=== PATIENT | male | born 1930 | race Caucasian/White ===

== ENCOUNTER 2016-09-18 18:32 | Inpatient (IN) | payer MEDICARE, BC ==
--- NOTE | ~2016-09-18 | DS ---
Discharge Summary [facility] [address] [place]. [address] NAME: LUX FONG : [birth year] STATUS : ADM IN PAT#: [id number] AGE: 86 ADM/REG DATE : 09/18/16 MR#: [id number] REPORT SERV DATE: 09/23/16 DICTATED BY: MICHAEL GEORGE DATE: 09/23/16 REPORT STATUS : Draft TRANSCRIBED BY: MODL DATE: 09/23/16 ADMISSION DATE: 09/18/2016 DISCHARGE DATE: FINAL DIAGNOSES: 1. Bilateral lower extremity cellulitis, improving. 2. Flu, improved. 3. Acute hypoxic respiratory failure, improved. 4. History of asbestosis. 5. Chronic obstructive pulmonary disease exacerbation, improved. 6. Hypertension. 7. Diabetes. 8. Status post acute kidney injury. 9. Peptic ulcer disease. 10.Benign prostatic hyperplasia. 11.Essential tremors. DIAGNOSTIC EXAM: Chest x-ray showing no acute cardiopulmonary disease. Stable nonspecific hyperinflation of the lungs. Chronic bilateral calcified pleural plaques. HOSPITAL COURSE: Please refer to the H and P done by Dr. Allred dated on September 18, 2016. Briefly, this is an 86-year-old male with a history of COPD, PASQUALE, CKD 3, chronic lymph edema, comes in with fever, increased lower extremity swelling and cough. The patient was found to have a flu, started on Tamiflu with a COPD exacerbation. He was also started on antibiotics for his cellulitis. There is some improvement on his cellulitis with decreased swelling, redness, and erythema. The patient completed treatment for flu and his acute respiratory failure improved as well. However, the daughter said that he has PASQUALE, used to be on CPAP before, but for some reason, does not have the machine anymore. She is requesting for a sleep study. However, we do not do that in the hospital. I advised her that once he gets much better, that he would need an outpatient sleep study, but for now, he would be needing 2 L of oxygen at night, but he can take it off during the day. The patient also was found to have an MARI with a creatinine of 1.99. We held off his lisinopril and increased the hydralazine to maintain a good blood pressure. The patient's MARI improved and went down to 1.26. We had to continue the furosemide because of his chronic lymph edema and I think he can continue this with the improvement of his creatinine. The patient will now be discharged to [facility] with the above diagnosis. He will be on the following medications: Aspirin 81 mg a day, Colace 100 mg twice a day, Lasix 20 mg a day, sliding scale NovoLog, melatonin 10 mg at bedtime, multivitamin once a day, Mirapex 0.25 mg at bedtime, Nexium 40 mg a day, Flomax 0.4 mg a day, hydralazine 50 mg every eight hours, metformin 500 mg twice a day, Proventil inhaled four times a day, Brintellix 10 mg at bedtime, Anoro Ellipta 62.5/25 inhaled a day, and Duricef 1 g p.o. b.i.d. for one more week. The patient will follow up with the [facility] doctor, then follow up with his PCP after [facility] discharge. This has been explained to the patient. He agreed and understood the plan. Discharge Summary [address] [address] NAME: LUX FONG : [birth year] STATUS : ADM IN PAT#: [id number] AGE: 86 ADM/REG DATE : 09/18/16 MR#: [id number] REPORT SERV DATE: 09/23/16 DICTATED BY: MICHAEL GEORGE DATE: 09/23/16 REPORT STATUS : Draft TRANSCRIBED BY: TANNER DATE: 09/23/16 FERNANDA/TANNER Michael George M.D. / [id number] CC: Kishan Capellan MD
--- NOTE | ~2016-09-18 | HP ---
History And Physical [id number] [place]. [address] NAME: LUX FONG : [birth year] STATUS : ADM IN PAT#: [id number] AGE: 86 ADM/REG DATE : 09/18/16 MR#: [id number] REPORT SERV DATE: 09/19/16 DICTATED BY: FAUSTO CORONA DATE: 09/18/16 REPORT STATUS : Draft TRANSCRIBED BY: MODL DATE: 09/18/16 DATE OF ADMISSION: 09/18/2016 POINT OF ENTRY: [facility] Emergency Room Department. PRIMARY CARE PHYSICIAN: Sebas Sandra N.P. CHIEF COMPLAINT: Fevers, cough, lower extremity swelling and redness. HISTORY OF PRESENT ILLNESS: Mr. Fong is an 86-year-old gentleman with history of COPD, not on any oxygen; asbestosis; eeo-oazwfwq-vcdurqjqp diabetes type 2; chronic kidney stage 3; as well as chronic lower extremity lymphedema, who presents to the emergency room today with multiple complaints including fevers, lower extremity swelling, redness, and pain, cough as well as nausea and vomiting. The patient was doing well and his usual state of health until about when he started to develop fevers as well as nausea and vomiting. The family states that the fever has been as high as 102 degrees Fahrenheit and included a fever this morning. Given that he was having nausea and vomiting, he underwent a swallow study given his recent history of stroke which reportedly did not show any dysphagia. He denies any abdominal pain and diarrhea but does report some chronic constipation. The patient also reports a dry, nonproductive cough during this time period, but denies any shortness of breath or associated wheezing. Beginning this morning, his legs became more swollen than usual, warm to the touch, tender as well as very red. The patient actually was placed on some Levaquin by his primary care physician yesterday for the cough. Initial evaluation in the emergency room for flu A positivity. Labs otherwise unremarkable except for creatinine of 1.9 which is above his baseline. Chest x-ray shows diffuse interstitial alveolar and pleural opacities consistent with the patient's asbestosis exposure; however, it appears more severe than prior chest x-rays. The patient was subsequently admitted to the Hospitalist Service for further evaluation and management. The patient also reports some sacral wounds and some chronic lower back pain, but otherwise, denies any chest pain, palpitations, shortness of breath, wheezing, sputum production, abdominal pain, diarrhea, melena, hematochezia, or hemoptysis. Comprehensive system otherwise negative unless listed in history of present illness. PREVIOUS MEDICAL HISTORY: 1. COPD, not on home oxygen. 2. Asbestosis. 3. Chronic kidney stage 3, baseline creatinine 1.2 to 1.4. 4. Hypertension. 5. Hyperlipidemia. 6. Dui-enxswkx-yvsojrovr diabetes mellitus type 2. History And Physical [address] [address] NAME: LUX FONG : [birth year] STATUS : ADM IN PAT#: [id number] AGE: 86 ADM/REG DATE : 09/18/16 MR#: [id number] REPORT SERV DATE: 09/19/16 DICTATED BY: FAUSTO CORONA DATE: 09/18/16 REPORT STATUS : Draft TRANSCRIBED BY: TANNER DATE: 09/18/16 7. Prior history of lower extremity cellulitis. 8. Chronic lymphedema. 9. Prior history of cerebrovascular accident with right-sided weakness. 10.Peptic ulcer disease. SURGICAL HISTORY: Hernia repair surgery. ALLERGIES: PENICILLIN AND AUGMENTIN. HOME MEDICATIONS: 1. Albuterol one inhalation q.i.d. p.r.n. 2. Aspirin 81 mg daily. 3. M-End PE liquid 5 mL q.4 hours p.r.n. 4. Nexium 40 mg at bedtime. 5. Lasix 20 mg daily. 6. [place] 10-325 one tablet at bedtime. 7. Ibuprofen 600 mg at bedtime. 8. Levaquin 500 mg daily. 9. Lisinopril 10 mg daily. 10.Melatonin 10 mg at bedtime. 11.Metformin 500 mg b.i.d. 12.Mirapex 0.25 mg at bedtime. 13.Flomax 0.4 mg at bedtime. 14.Anoro Ellipta one inhalation daily. 15.Medihoney. 16.Brintellix 10 mg at bedtime. SOCIAL HISTORY: Denies any tobacco, alcohol, or illicit. Is a former smoker but quit greater than 40 years ago. 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 FAMILY MEDICAL HISTORY: Mother with cancer type unknown. Father and siblings with history of coronary artery disease. LABS AND IMAGIN. White count 6.3, hemoglobin 12.8, hematocrit 39.9, platelets 213, and INR 1.1. 2. Sodium is 138, potassium 4.3, chloride 106, carbon dioxide 26, BUN 29, creatinine 1.99, glucose is 94, calcium is 8.7, protein is 7.7, albumin is 3.1, bilirubin is 0.3, ALT is 20, AST 19, alkaline phosphatase is 85. 3. Lipase is 56. 4. Lactic acid 1.4. 5. Flu A is positive. 6. EKG per my review shows normal sinus rhythm with no evidence of acute ischemia or infarction. 7. Chest x-ray per my review shows diffuse interstitial alveolar as well as pleural opacities concerning for asbestosis exposure; however, when compared to prior x-rays, the alveolar and interstitial opacities appear more prominent concerning for possible History And Physical [address] [address] NAME: LUX FONG : [birth year] STATUS : ADM IN [facility]#: [id number] AGE: 86 ADM/REG DATE : 09/18/16 MR#: [id number] REPORT SERV DATE: 09/19/16 DICTATED BY: FAUSTO CORONA DATE: 09/18/16 REPORT STATUS : Draft TRANSCRIBED BY: TANNER DATE: 09/18/16 pneumonia versus edema. PHYSICAL EXAMINATION: VITAL SIGNS: Temperature is 98.5 degrees Fahrenheit, pulse is 78, respirations 18, saturating 86% on room air, blood pressure 127/63. On recheck, it is now 155/54, saturating 97% on 3 L of cannula. GENERAL: The patient is awake, alert, in no acute distress. Resting comfortably. He is a well-developed, well-nourished, elderly male. Daughter is at bedside. HEENT: Atraumatic and normocephalic. Moist mucous membranes. Pupils equal, round, reactive to light and accommodation. Extraocular eye movements are intact. No scleral icterus. NECK: No jugular venous distention. No carotid bruits. CARDIAC: Regular rate and rhythm. No murmurs, rubs, or gallops. Normal S1, S2. LUNGS: Is on oxygen but in no respiratory distress. The patient has diffuse inspiratory crackles as well as rales and occasional rhonchi in almost all lung [place]. ABDOMEN: Soft, nontender, and nondistended. Good bowel sounds. No rebound, guarding, or rigidity. EXTREMITIES: Bilateral lower extremities have approximately 2+ lower extremity edema. The left greater than right extremity is very red to the level of the region below the knee. Warm to the touch as well as tender. There are no areas of ulceration and no palpable fluid collections at this time. SKIN: Warm and dry except for noted above. PSYCH: Affect appropriate. NEURO: Alert and oriented x3. Cranial nerves II through XII grossly intact. Speech is normal. Gait not assessed. ASSESSMENT AND PLAN: Mr. Fong is an 86-year-old gentleman who presents with cough, fevers, and lower extremity pain and swelling and found to have evidence of influenza infection as well as lower extremity cellulitis, hypoxemia, and possible pneumonia. PROBLEM LIST: 1. Lower extremity cellulitis. 2. Flu A positive infection. 3. Hypoxemia. 4. Acute kidney injury. 5. Possible pneumonia. 6. Kbc-punbalc-kzplxjqzy diabetes mellitus type 2. PLAN: 1. Lower extremity cellulitis. We will place the patient empirically on vancomycin. Consult Wound Care for assistance. Have the patient elevate his legs. 2. Flu A positivity. We will treat empirically with Tamiflu. 3. Hypoxemia, likely secondary to flu A positivity as well as possible pneumonia in the setting of COPD and prior asbestos exposure. We will attempt to wean as tolerated with treatment with nebs, pulmonary toilet as well as antibiotics. 4. Acute kidney injury. The patient appears to have acute on chronic kidney stage 3. His baseline creatinine approximately is 1.2 to 1.4. This is mildly elevated above his baseline. As such, we will hold his MIKKI inhibitor as well as his NSAIDs. Provide History And Physical [address] [address] NAME: LUX FONG : [birth year] STATUS : ADM IN [facility]#: [id number] AGE: 86 ADM/REG DATE : 09/18/16 MR#: [id number] REPORT SERV DATE: 09/19/16 DICTATED BY: FAUSTO CORONA DATE: 09/18/16 REPORT STATUS : Draft TRANSCRIBED BY: MODL DATE: 09/18/16 gentle IV fluid hydration. 5. Possible pneumonia. We will empirically place the patient on Levaquin for community- acquired pneumonia given penicillin allergy. We will follow up formal radiology read of the chest x-ray. Given concern for possible edema, we will also check a BNP level. 6. COPD. I do not appreciate any wheezing at this time. The patient denies any shortness of breath or sputum production. I will place the patient on DuoNeb as well as frequent bronchodilators but hold off on steroids at this time. 7. DVT prophylaxis. Lovenox subcu. 8. Code status. The patient wishes to be full code. MICHEALB/MODL Fausto Corona MD / [id number] CC: Kishan Mcbride N.P.
[2016-09-18 16:58] LABS: BASOPHILS 0.3 %; BASOPHILS ABSOLUTE 0.02 10/3/uL (0.0-0.16); EOSINOPHILS 0 %; ER CBC TAT 0 Hrs 08 Mins; HEMATOCRIT 39.9 % (40.0-51.0); HEMOGLOBIN 12.8 g/dL (13.6-17.8); IMMATURE GRANULOCYTES 0.3 %; IMMATURE GRANULOCYTES ABSOLUTE 0.02 10/3/uL (0.0-0.11); LYMPHOCYTES 16.9 %; LYMPHOCYTES ABSOLUTE 1.07 10/3/uL (0.67-4.30); MEAN CORPUS HGB CONC 32.1 g/dL (32.0-36.0); MEAN CORPUSCULAR VOLUME 90.3 fL (80-100); MEAN PLATELET VOLUME 11.1 fL (9.2-13.0); MONOCYTES 9.2 %; MONOCYTES ABSOLUTE 0.58 10/3/uL (0.21-1.20); NEUTROPHILS 73.3 %; NEUTROPHILS ABSOLUTE 4.63 10/3/uL (2.02-8.40); PLATELET COUNT 213 10/3/uL (150-400); RBC DISTRIBUTION WIDTH 14.6 % (12.0-16.0); RED CELL COUNT 4.42 10/6/uL (4.7-6.1); WHITE BLOOD CELLS 6.3 10/3/uL (4.5-10.5)
[2016-09-18 17:08] LABS: MANUAL DIFF NO %
[2016-09-18 17:17] LABS: INTERNATIONAL NORMAL RATI 1.1 UNITS (-); PROTIME (NOT ORD) 14.3 SEC (12.0-14.5)
[2016-09-18 17:18] LABS: A/G RATIO 0.7 (0.7-1.9); ALBUMIN 3.1 G/DL (3.5-5.0); BUN (BLOOD UREA NITROGEN) 29 MG/DL (6-23); CALCIUM, SERUM 8.7 MG/DL (8.5-10.4); CHLORIDE, SERUM 100 MMOL/L (96-112); CO2 (CARBON DIOXIDE) 26 MMOL/L (24-34); GLOBULIN 4.6 G/DL (2.5-4.1); POTASSIUM, SERUM 4.3 MMOL/L (3.5-5.3); SGOT(AST) 19 U/L (5-40); SGPT(ALT) 20 U/L (5-65); SODIUM, SERUM 138 MMOL/L (135-148); TOTAL BILIRUBIN 0.3 MG/DL (0-1.2); TOTAL PROTEIN 7.7 G/DL (6.0-8.5)
[2016-09-18 17:20] LABS: ALKALINE PHOSPHATASE 85 U/L (45-117); CREATININE 1.99 MG/DL (0.70-1.30); GFR AFRICAN AMERICAN 34 ML/MIN (>=60); GFR NON AFRICAN AMERICAN 29 ML/MIN (>=60); GLUCOSE, SERUM 94 MG/DL (60-99); PARTIAL THROMBO TIME 37.6 SEC (22.5-37.2)
[2016-09-18 17:21] LABS: LACTATE 1.4 MMOL/L (0.3-2.4)
[2016-09-18 18:05] LABS: PROCALCITONIN 0.07 ng/mL (<0.5)
[~2016-09-18 18:32] MED LIST: ADVAIR100 INH; AMARYL2 PO; AVAP150 PO; BYETTA10 SC; CARD120 PO; FLONASE NAS; GLUCPH PO; ISORDIL20 PO; LACHYDRIN LOT225 GM EX; MIRAPEX125 PO; PRILO PO; SPIRIVA INH; STARLIX120 PO; TRIAMCINOLONE C80 GM T; XYZAL5 MG PO; ZOCOR20 PO
[2016-09-18 19:54] LABS: INFLUENZA B SCREEN NEGATIVE (NEGATIVE)
[2016-09-18 19:55] LABS: INFLUENZA A SCREEN POSITIVE (NEGATIVE)
[2016-09-18] MEDS ORDERED: ASAB PO (20:17)
[2016-09-18] MEDS ORDERED: ZESTRIL10 MG PO (20:18)
[2016-09-18] MEDS ORDERED: L20 PO (20:18)
[2016-09-18] MEDS ORDERED: GLUCPH PO (20:18)
[2016-09-18] MEDS ORDERED: NEXIUM40 PO (20:19)
[2016-09-18] MEDS ORDERED: BRINT10T PO (20:19)
[2016-09-18] MEDS ORDERED: NORCO1 TAB PO (20:19)
[2016-09-18] MEDS ORDERED: IBU600 PO (20:20)
[2016-09-18] MEDS ORDERED: MIRAPEX250 PO (20:20)
[2016-09-18] MEDS ORDERED: MELATONIN10 M2 PO (20:20)
[2016-09-18] MEDS ORDERED: FLOMAX4 PO (20:20)
[2016-09-18] MEDS ORDERED: LEVAQUIN5T PO (20:21)
[2016-09-18] MEDS ORDERED: M-END PE PO (20:22)
[2016-09-18] MEDS ORDERED: ALBUTEROL5 INH (20:25)
[2016-09-18] MEDS ORDERED: ANOROELLIPTA INH (20:26)
[2016-09-18] MEDS ORDERED: MEDIHONEY TOP (20:27)
[2016-09-18 21:36] LABS: ASCORBIC ACID (UR NOT ORDER) NEG (NEG); BILIRUBIN, URINE NEGATIVE (NEG); ER URINALYSIS TAT 0 Hrs 10 Mins; KETONE, URINE NEGATIVE (NEG); LEUKOCYTE ESTERASE(NOT OR NEG (NEG); NITRITE (URINE) NEG (NEG); WBC (NOT ORDERED) (RFLEX) 1 (0-5)
[2016-09-19 04:27] LABS: BASOPHILS 0.2 %; BASOPHILS ABSOLUTE 0.01 10/3/uL (0.0-0.16); EOSINOPHILS 0.4 %; EOSINOPHILS ABSOLUTE 0.02 10/3/uL (0.0-0.53); HEMOGLOBIN 11.4 g/dL (13.6-17.8); IMMATURE GRANULOCYTES 0.4 %; IMMATURE GRANULOCYTES ABSOLUTE 0.02 10/3/uL (0.0-0.11); LYMPHOCYTES 17.2 %; LYMPHOCYTES ABSOLUTE 0.84 10/3/uL (0.67-4.30); MEAN CORPUS HGB CONC 32.5 g/dL (32.0-36.0); MEAN CORPUSCULAR VOLUME 89.3 fL (80-100); MEAN PLATELET VOLUME 11.1 fL (9.2-13.0); MONOCYTES 12.5 %; MONOCYTES ABSOLUTE 0.61 10/3/uL (0.21-1.20); NEUTROPHILS 69.3 %; NEUTROPHILS ABSOLUTE 3.37 10/3/uL (2.02-8.40); PLATELET COUNT 179 10/3/uL (150-400); RBC DISTRIBUTION WIDTH 14.4 % (12.0-16.0); RED CELL COUNT 3.93 10/6/uL (4.7-6.1); WHITE BLOOD CELLS 4.9 10/3/uL (4.5-10.5)
[2016-09-19 04:28] LABS: HEMATOCRIT 35.1 % (40.0-51.0); MANUAL DIFF NO %
[2016-09-19 04:42] LABS: ALBUMIN 2.5 G/DL (3.5-5.0); CALCIUM, SERUM 8.1 MG/DL (8.5-10.4); CHLORIDE, SERUM 103 MMOL/L (96-112); CO2 (CARBON DIOXIDE) 26 MMOL/L (24-34); GFR AFRICAN AMERICAN 48 ML/MIN (>=60); GFR NON AFRICAN AMERICAN 41 ML/MIN (>=60); GLUCOSE, SERUM 97 MG/DL (60-99); PHOSPHORUS, SERUM 3.1 MG/DL (2.5-4.5); POTASSIUM, SERUM 3.8 MMOL/L (3.5-5.3); SODIUM, SERUM 139 MMOL/L (135-148)
[2016-09-19 04:50] LABS: BUN (BLOOD UREA NITROGEN) 25 MG/DL (6-23); CREATININE 1.49 MG/DL (0.70-1.30)
[2016-09-19 17:56] LABS: FREE T4 1.22 NG/DL (0.76-1.46)
[2016-09-19 17:58] LABS: FOLATE 19.7 NG/ML (>5.2)
[2016-09-20 08:11] LABS: BASOPHILS 0.4 %; BASOPHILS ABSOLUTE 0.01 10/3/uL (0.0-0.16); EOSINOPHILS 0 %; HEMATOCRIT 38.2 % (40.0-51.0); HEMOGLOBIN 12.5 g/dL (13.6-17.8); IMMATURE GRANULOCYTES 0.8 %; IMMATURE GRANULOCYTES ABSOLUTE 0.02 10/3/uL (0.0-0.11); LYMPHOCYTES 17.4 %; LYMPHOCYTES ABSOLUTE 0.41 10/3/uL (0.67-4.30); MEAN CORPUS HGB CONC 32.7 g/dL (32.0-36.0); MEAN CORPUSCULAR HEMOGLOB 28.7 pg (26.0-34.0); MEAN CORPUSCULAR VOLUME 87.8 fL (80-100); MEAN PLATELET VOLUME 11.4 fL (9.2-13.0); MONOCYTES 5.9 %; MONOCYTES ABSOLUTE 0.14 10/3/uL (0.21-1.20); NEUTROPHILS 75.5 %; NEUTROPHILS ABSOLUTE 1.78 10/3/uL (2.02-8.40); PLATELET COUNT 191 10/3/uL (150-400); RBC DISTRIBUTION WIDTH 14.2 % (12.0-16.0); RED CELL COUNT 4.35 10/6/uL (4.7-6.1)
[2016-09-20 08:15] LABS: WHITE BLOOD CELLS 2.4 10/3/uL (4.5-10.5)
[2016-09-20 08:16] LABS: BUN (BLOOD UREA NITROGEN) 23 MG/DL (6-23); CALCIUM, SERUM 8.7 MG/DL (8.5-10.4); CHLORIDE, SERUM 102 MMOL/L (96-112); CO2 (CARBON DIOXIDE) 27 MMOL/L (24-34); CREATININE 1.22 MG/DL (0.70-1.30); GFR AFRICAN AMERICAN 61 ML/MIN (>=60); GFR NON AFRICAN AMERICAN 53 ML/MIN (>=60); POTASSIUM, SERUM 4.1 MMOL/L (3.5-5.3); SODIUM, SERUM 138 MMOL/L (135-148)
[2016-09-20 08:17] LABS: GLUCOSE, SERUM 160 MG/DL (60-99)
[2016-09-20 08:18] LABS: MANUAL DIFF NO %
[2016-09-21 05:26] LABS: BASOPHILS 0.1 %; BASOPHILS ABSOLUTE 0.01 10/3/uL (0.0-0.16); EOSINOPHILS 0 %; HEMATOCRIT 36.4 % (40.0-51.0); IMMATURE GRANULOCYTES 0.3 %; IMMATURE GRANULOCYTES ABSOLUTE 0.02 10/3/uL (0.0-0.11); LYMPHOCYTES 6.4 %; LYMPHOCYTES ABSOLUTE 0.45 10/3/uL (0.67-4.30); MANUAL DIFF NO %; MEAN CORPUSCULAR HEMOGLOB 28.8 pg (26.0-34.0); MEAN CORPUSCULAR VOLUME 87.3 fL (80-100); MEAN PLATELET VOLUME 10.9 fL (9.2-13.0); MONOCYTES 8.1 %; MONOCYTES ABSOLUTE 0.57 10/3/uL (0.21-1.20); NEUTROPHILS 85.1 %; NEUTROPHILS ABSOLUTE 5.95 10/3/uL (2.02-8.40); PLATELET COUNT 195 10/3/uL (150-400); RBC DISTRIBUTION WIDTH 14.2 % (12.0-16.0); RED CELL COUNT 4.17 10/6/uL (4.7-6.1)
[2016-09-21 05:39] LABS: BUN (BLOOD UREA NITROGEN) 33 MG/DL (6-23); CALCIUM, SERUM 8.3 MG/DL (8.5-10.4); CHLORIDE, SERUM 105 MMOL/L (96-112); CO2 (CARBON DIOXIDE) 26 MMOL/L (24-34); CREATININE 1.28 MG/DL (0.70-1.30); GFR AFRICAN AMERICAN 58 ML/MIN (>=60); GFR NON AFRICAN AMERICAN 50 ML/MIN (>=60); GLUCOSE, SERUM 194 MG/DL (60-99); SODIUM, SERUM 140 MMOL/L (135-148)
[2016-09-22 05:28] LABS: BUN (BLOOD UREA NITROGEN) 36 MG/DL (6-23); CALCIUM, SERUM 8.3 MG/DL (8.5-10.4); CHLORIDE, SERUM 104 MMOL/L (96-112); CO2 (CARBON DIOXIDE) 28 MMOL/L (24-34); CREATININE 1.26 MG/DL (0.70-1.30); GFR AFRICAN AMERICAN 59 ML/MIN (>=60); GFR NON AFRICAN AMERICAN 51 ML/MIN (>=60); GLUCOSE, SERUM 198 MG/DL (60-99); POTASSIUM, SERUM 4.3 MMOL/L (3.5-5.3); SODIUM, SERUM 139 MMOL/L (135-148)
[2017-01-24] MEDS ORDERED: GLUCPH PO (17:17)
[2017-01-24] MEDS ORDERED: TRINTELLIX10 MG PO (17:18)
[2017-01-24] MEDS ORDERED: FLOMAX4 PO (17:18)
[2017-01-24] MEDS ORDERED: IBU600 PO (17:18)
[2017-01-24] MEDS ORDERED: ANOROELLIPTA INH (17:18)
[2017-01-24] MEDS ORDERED: MIRAPEX5 PO (17:19)
[2017-01-24] MEDS ORDERED: NEXIUM40 PO (17:19)
[2017-01-24] MEDS ORDERED: MELATONIN10 M2 PO (17:20)
[2017-01-24] MEDS ORDERED: PRIN10 PO (17:20)
[2017-01-24] MEDS ORDERED: LINZESS 290 M290 MCG PO (17:20)
[2017-01-24] MEDS ORDERED: BEN25 PO (17:20)
[2017-01-24] MEDS ORDERED: ASAB PO (17:21)
[2017-01-24] MEDS ORDERED: L20 PO (17:21)
[2017-01-24] MEDS ORDERED: CLARITIN5 MG PO (17:21)
[2017-01-28] MEDS ORDERED: PRIN2.5 PO (12:06)
[2017-01-28] MEDS ORDERED: L20 PO (12:07)
[2017-01-28] MEDS ORDERED: CLEOCIN300 MG PO (12:08)
[2017-01-28] MEDS ORDERED: FLORASTOR250 MG PO (12:08)
[2017-01-28] MEDS ORDERED: LOP25 PO (17:22)
[2017-03-23] MEDS ORDERED: BEN25 PO (19:00)
[2017-03-23] MEDS ORDERED: NEXIUM40 PO (19:00)
[2017-03-23] MEDS ORDERED: L40 PO (19:01)
[2017-03-23] MEDS ORDERED: LINZESS 290 M290 MCG PO (19:01)
[2017-03-23] MEDS ORDERED: LOP25 PO (19:02)
[2017-03-23] MEDS ORDERED: ZESTRIL2.5 MG PO (19:02)
[2017-03-23] MEDS ORDERED: CLARITIN5 MG PO (19:03)
[2017-03-23] MEDS ORDERED: MELATONIN10 M2 PO (19:03)
[2017-03-23] MEDS ORDERED: FLOMAX4 PO (19:04)
[2017-03-23] MEDS ORDERED: FLORASTOR250 MG PO (19:04)
[2017-03-23] MEDS ORDERED: MIRAPEX5 PO (19:04)
[2017-03-23] MEDS ORDERED: TRINTELLIX10 MG PO (19:05)
[2017-03-23] MEDS ORDERED: ANOROELLIPTA INH (19:05)
[2017-03-23] MEDS ORDERED: LIPITOR40 PO (19:06)
[2017-03-23] MEDS ORDERED: NORCO1 TAB PO (19:06)
[2017-03-23] MEDS ORDERED: ELIQUIS 2.5 MG2.5 MG PO (19:06)
[2017-03-26] MEDS ORDERED: NAMENDA5 PO ×2 (12:03→12:04)
[2017-03-26] MEDS ORDERED: DEMA20 PO (12:11)
[2017-03-26] MEDS ORDERED: MAGOX4 PO (12:13)
[2017-03-26] MEDS ORDERED: KLOR-CON 1010 MEQ PO (12:13)
[2017-03-26] MEDS ORDERED: APRES25 PO (12:14)
[2017-03-26] MEDS ORDERED: K250 PO (12:16)
[2017-04-01] MEDS ORDERED: Z100 PO (22:09)
[2017-04-01] MEDS ORDERED: EFFIENT10 PO (22:10)
[2017-04-01] MEDS ORDERED: L20 PO (22:10)
[2017-04-01] MEDS ORDERED: APRES25 PO (22:11)
[2017-04-01] MEDS ORDERED: CELEXA20 PO (22:11)
[2017-04-01] MEDS ORDERED: VENTOLIN HFA PO (22:12)
== END 2016-09-23 19:25 | DRG 602 ==
LOC: ER 18:32 → 5SO 21:03
PROVIDERS: Emergency Medicine; Internal Medicine
DX: L03.116 Cellulitis of left lower limb (principal); J96.01 Acute respiratory failure with hypoxia; N17.9 Acute kidney failure, unspecified; J44.1 Chronic obstructive pulmonary disease with (acute) exacerbation; E11.22 Type 2 diabetes mellitus with diabetic chronic kidney disease; J44.9 Chronic obstructive pulmonary disease, unspecified; L03.115 Cellulitis of right lower limb; J10.1 Influenza due to other identified influenza virus with other respiratory manifestations; N18.3 Chronic kidney disease, stage 3 (moderate); I12.9 Hypertensive chronic kidney disease with stage 1 through stage 4 chronic kidney disease, or unspecified chronic kidney disease; E78.5 Hyperlipidemia, unspecified; J61 Pneumoconiosis due to asbestos and other mineral fibers; G25.0 Essential tremor; I89.0 Lymphedema, not elsewhere classified; G47.33 Obstructive sleep apnea (adult) (pediatric); N40.0 Benign prostatic hyperplasia without lower urinary tract symptoms; Z66 Do not resuscitate; Z87.11 Personal history of peptic ulcer disease; Z88.0 Allergy status to penicillin; Z88.1 Allergy status to other antibiotic agents; Z79.82 Long term (current) use of aspirin; Z79.899 Other long term (current) drug therapy; Z79.84 Long term (current) use of oral hypoglycemic drugs; Z87.891 Personal history of nicotine dependence; Z80.8 Family history of malignant neoplasm of other organs or systems; Z82.49 Family history of ischemic heart disease and other diseases of the circulatory system
CPT/HCPCS: 71010; 71020; 80048; 80053; 80069; 80202; 81001; 82570; 82607; 82746; 82962; 83036; 83605; 83690; 83735; 83880; 83935; 84145; 84300; 84439; 84443; 85025; 85610; 85730; 87040; 87449; 87804; 93005; 94640; 96374; 97110-GP; 97116-GP; 97162-GP; 99285; A9270-GY; G8978-CK-GP; G8979-CK-GP; J0360; J1956; J2920; J3370